=== PATIENT | female | born 1990 | race Two or more races ===

== ENCOUNTER 2020-03-14 02:27 | Emergency (ER) | payer MEDICAID ==
[~2020-03-14] VITALS: Ht 157.5 cm; Wt 53.5 kg
[2020-03-14 02:38] VITALS: BP 130/79
[2020-03-14] MEDS ORDERED: cefTRIAXone 1,000 MG in LIDOCAINE MPF 1% 2.1 ML IM ONE (04:05)
[2020-03-14] MEDS ORDERED: cefTRIAXone 1,000 MG VIAL ONE (04:09)
[2020-03-14] MEDS ORDERED: LIDOCAINE MPF 1% 5 ML ONE (04:10)
[2020-03-14 04:45] VITALS: BP 128/82
== END 2020-03-14 04:45 | disposition home or self-care (01) ==
LOC: MED 02:27
DX: L03.317 Cellulitis of buttock (principal)
CPT/HCPCS: 96372; 99284; J0696; J2001

== ENCOUNTER 2020-07-01 21:41 | Emergency (ER) | payer MEDICAID ==
[~2020-07-01] VITALS: Ht 188 cm; Wt 57.6 kg
[2020-07-01 21:44] VITALS: BP 109/81
[2020-07-01 22:34] VITALS: BP 109/81
== END 2020-07-01 22:34 | disposition home or self-care (01) ==
LOC: MED 21:41
DX: S20.212A Contusion of left front wall of thorax, initial encounter (principal); Y08.89XA Assault by other specified means, initial encounter; Y93.89 Activity, other specified; Y92.89 Other specified places as the place of occurrence of the external cause; Y99.8 Other external cause status
CPT/HCPCS: 71101; 81025; 99283